=== PATIENT | male | born 1985 | race Caucasian/White ===

== ENCOUNTER 2017-07-06 21:20 | Emergency (ER) | payer BC ==
[~2017-07-06] VITALS: Ht 180.3 cm; Wt 133.3 kg
[2017-07-06 21:23] VITALS: TEMP 36.9; Ht 180.3 cm; Wt 133.3 kg
[2017-07-06] MEDS ORDERED: BENZ100C84 PO (21:58)
[2017-07-06] MEDS ORDERED: ALBU18002 INH (21:58)
[2017-07-06] MEDS ORDERED: MISCCAP80 PO (21:58)
[2017-07-06] MEDS ORDERED: AMOX500C3 PO (21:58)
--- NOTE | 2017-07-06 21:58 | EMERGENCY ROOM VISIT NOTE ---
History First contact with patient: 21:42 Chief Complaint: SHORTNESS OF BREATH Stated Complaint: TROUBLE BREATHING, COUGHING, BLACKING OUT Nursing Triage Summary: see triage note History of Present Illness The patient is a 31 year old male who presents to the Emergency Room with complaints of cough. The patient states that he has had a cough for the last 1.5 weeks. The patient states that he feels a dry spot and a tickle in the back of his throat and develops a coughing fit. He states that he coughs so much that he has a syncopal episode. The patient states that with this paroxysm of cough, he is short of breath and feels as though he can't breathe and feels wheezing. He rates his discomfort a 3/10. He was seen at urgent care and started on amoxicillin 1 week ago. He states he has had a sore throat as well. He denies any fevers or chills. He denies any pain in his chest. He denies any abdominal pain, nausea, vomiting, diarrhea. The patient denies any history of seasonal allergies. The patient is a smoker. He denies any recent travel. He denies any leg pain or leg swelling. He denies any personal or family history of DVT, PE or coagulopathy. Review of Systems A 10 system review of systems was completed with positives and pertinent negatives listed in the HPI. Past Medical/Surgical History patient denies Social History Smoking Status: Current Every Day Smoker Housing Status: lives with family Occupation Status: employed Current/Historical Medications Scheduled Albuterol Sulfate (Proair Respiclick), 2 PUFFS INH Q6H Amoxicillin (Amoxil), 500 MG PO BID Azithromycin (Zithromax), 250 MG PO DAILY Benzonatate (Tessalon Perles), 100 MG PO TID Benzonatate (Tessalon Perles), 200 MG PO TID Prednisone (Prednisone), 0 PO DAILY Probiotic Product (Probiotic), 1 CAP PO DAILY Physical Exam Vital Signs Date Time Temp Pulse Resp B/P (MAP) Pulse Ox O2 Delivery O2 Flow Rate FiO2 07/06/17 23:24 95 16 139/74 96 07/06/17 21:23 36.9 96 20 144/93 96 Room Air Physical Exam VITALS: Vitals are noted on the nurse's note and reviewed by myself. Vital signs stable. The patient is afebrile. His oxygen saturation is 96% on room air. GENERAL: This is a 31 year old male, in no acute distress, nondiaphoretic, well- developed well-nourished. SKIN: The skin was without rashes, erythema, edema, or bruising. There is no tenting of the skin. Capillary reflex less than 2 seconds. HEAD: Normocephalic atraumatic. EARS: External auditory canals clear, tympanic membranes pearly luciano without erythema or effusion bilaterally. EYES: Pupils equal round and reactive to light and accommodation. Conjunctivae without injection, sclerae without icterus. Extraocular movements intact. NOSE: Patent, turbinates without inflammation or discharge. MOUTH: Mucous membranes moist. Tonsils are not enlarged. Pharynx without erythema or exudate. Uvula midline. Airway patent. Tongue does not deviate. NECK: Supple without nuchal rigidity. No JVD. HEART: Regular rate and rhythm without murmurs gallops or rubs. LUNGS: Clear to auscultation bilaterally without wheezes, rales or rhonchi. No retractions or accessory muscle use. MUSCULOSKELETAL: No muscle atrophy, erythema, or edema noted. Full range of motion in all extremities. Normal gait. Strength 5/5 throughout. NEURO: Patient was alert and oriented to person place and time. No focal neurological deficits. Medical Decision & Procedures ER Provider Diagnostic Interpretation: CHEST 2 VIEWS ROUTINE CLINICAL HISTORY: cough dyspnea COMPARISON STUDY: No previous studies for comparison. FINDINGS: The bones soft tissues and hemidiaphragms are normal. The cardiomediastinal silhouette is normal. The lungs are clear. The pulmonary vasculature is normal. IMPRESSION: Negative chest. Laboratory Results 07/06/17 22:05 Red Blood Count 5.51, Mean Corpuscular Volume 84.6, Mean Corpuscular Hemoglobin 30.1, Mean Corpuscular Hemoglobin Concent 35.6, Mean Platelet Volume 10.0, Neutrophils (%) (Auto) 61.6, Lymphocytes (%) (Auto) 29.0, Monocytes (%) (Auto) 4.9, Eosinophils (%) (Auto) 3.6, Basophils (%) (Auto) 0.2, Neutrophils # (Auto) 7.41, Lymphocytes # (Auto) 3.48, Monocytes # (Auto) 0.59, Eosinophils # (Auto) 0.43, Basophils # (Auto) 0.03 07/06/17 22:05 Test 07/06/17 22:05 07/06/17 22:11 White Blood Count 12.02 K/uL (4.8-10.8) Red Blood Count 5.51 M/uL (4.7-6.1) Hemoglobin 16.6 g/dL (14.0-18.0) Hematocrit 46.6 % (42-52) Mean Corpuscular Volume 84.6 fL (80-100) Mean Corpuscular Hemoglobin 30.1 pg (25-34) Mean Corpuscular Hemoglobin Concent 35.6 g/dl (32-36) Platelet Count 239 K/uL (130-400) Mean Platelet Volume 10.0 fL (7.4-10.4) Neutrophils (%) (Auto) 61.6 % Lymphocytes (%) (Auto) 29.0 % Monocytes (%) (Auto) 4.9 % Eosinophils (%) (Auto) 3.6 % Basophils (%) (Auto) 0.2 % Neutrophils # (Auto) 7.41 K/uL (1.4-6.5) Lymphocytes # (Auto) 3.48 K/uL (1.2-3.4) Monocytes # (Auto) 0.59 K/uL (0.11-0.59) Eosinophils # (Auto) 0.43 K/uL (0-0.5) Basophils # (Auto) 0.03 K/uL (0-0.2) RDW Standard Deviation 38.3 fL (36.4-46.3) RDW Coefficient of Variation 12.5 % (11.5-14.5) Immature Granulocyte % (Auto) 0.7 % Immature Granulocyte # (Auto) 0.08 K/uL (0.00-0.02) Anion Gap 7.0 mmol/L (3-11) Est Creatinine Clear Calc Drug Dose 115.7 ml/min Estimated GFR () 84.9 Estimated GFR (Non- 73.2 BUN/Creatinine Ratio 9.0 (10-20) Calcium Level 8.9 mg/dl (8.5-10.1) Total Bilirubin 0.4 mg/dl (0.2-1) Aspartate Amino Transf (AST/SGOT) 37 U/L (15-37) Alanine Aminotransferase (ALT/SGPT) 107 U/L (12-78) Alkaline Phosphatase 88 U/L (45-117) Total Protein 7.8 gm/dl (6.4-8.2) Albumin 3.9 gm/dl (3.4-5.0) Globulin 3.9 gm/dl (2.5-4.0) Albumin/Globulin Ratio 1.0 (0.9-2) Chemistry Specimen Hemolysis Bedside D-Dimer 173 ng/mlFEU (0-450) Bedside Troponin I < 0.030 ng/ml (0-0.045) Medications Administered Medications (Trade) Dose Ordered Sig/Blas Route Start Time Stop Time Status Last Admin Dose Admin Azithromycin (Zithromax Tab) 500 mg NOW STAT PO 07/06/17 23:03 07/06/17 23:05 DC 07/06/17 23:18 500 MG Prednisone (PredniSONE TAB) 60 mg NOW STAT PO 07/06/17 23:03 07/06/17 23:05 DC 07/06/17 23:18 60 MG Benzonatate (Tessalon Perles Cap) 100 mg NOW ONCE PO 07/06/17 23:15 07/06/17 23:16 DC 07/06/17 23:18 100 MG Procedure The patient was monitored on a nuclear monitoring technician. They maintained a normal sinus rhythm without ectopy. ECG Indication: SOB/dyspnea Rate (beats per minute): 90 Rhythm: normal sinus Findings: no acute ischemic change Comparison ECG Date: no prior available ED Course The patient was seen and examined. He does not have a fever or leukocytosis. He does not have any significant electrolyte abnormality. Pertussis is pending. Troponin is not elevated. D-dimer was not elevated. The patient likely has allergic rhinitis, postnasal drip causing the paroxysms of cough. Pertussis is also considered. The patient will be placed on Z-Carlos, prednisone and encouraged to try [id number] Flonase and antihistamine such as Claritin, Zyrtec or Astrid. He will also be given Tessalon Perles. He should recheck with his family doctor next week. He should return sooner with any worsening symptoms. The case was discussed with Dr. Espinosa who agrees with the assessment and treatment plan Medical Decision DIFFERENTIAL DIAGNOSIS: Aortic dissection, myocarditis, pericarditis, cervical disc disease, costochondritis, herpes zoster, rib fracture, pleuritis, pneumonia , pulmonary embolus, tension pneumothorax, anxiety disorder, somatoform disorder , choledocholithiasis, status, esophagitis, esophageal spasm, esophageal reflux , esophageal rupture, pancreatitis, peptic ulcer disease, cardiac ischemia, ST elevation ND, acute coronary syndrome, arrhythmia, coronary artery vasospasm. vavular heart disease, coronary artery disease, among others. Medication Reconcilliation Current Medication List: was personally reviewed by me Blood Pressure Screening Patient's blood pressure: Elevated blood pressure Blood pressure disposition: Elevated BP felt to be situational Impression Primary Impression: Cough Additional Impression: Acute bronchitis Departure Information Dispostion Home / Self-Care Condition GOOD Prescriptions Azithromycin (Zithromax) 250 Mg Tab 250 MG PO DAILY for 4 Days, #4 TAB Prov: Lynn Cummins PA-C 07/06/17 Benzonatate (Tessalon Perles) 200 Mg Cap 200 MG PO TID for 10 Days, #30 CAP Prov: Lynn Cummins PA-C 07/06/17 Prednisone (Prednisone) 20 Mg Tab 0 PO DAILY, #18 TAB 3 DAILY FOR 3 DAYS, THEN 2 DAILY FOR 3 DAYS, THEN 1 DAILY FOR 3 DAYS. Prov: Lynn Cummins PA-C 07/06/17 Referrals No Doctor, Assigned (PCP) Patient Instructions My [facility] Additional Instructions Tessalon Perles as prescribed, as needed for coughing Zithromax as prescribed, until finished Prednisone as prescribed, until finished You may consider trying [id number] medications such as Claritin, Zyrtec or Astrid and nasal spray such as Flonase Return with any worsening symptoms Otherwise, follow up with your family doctor next week Problem Qualifiers
[2017-07-06 22:22] LABS: BASO % 0.2 %; BASO ABS # 0.03 K/uL (0-0.2); COMPLETE YES; EOS % 3.6 %; HEMATOCRIT 46.6 % (42-52); IG% 0.7 %; LYMPH ABS # 3.48 K/uL (1.2-3.4); MEAN CELL VOLUME 84.6 fL (80-100); MEAN CORPUSCULAR HEMOGLOBIN 30.1 pg (25-34); MEAN CORPUSCULAR HGB CONC 35.6 g/dl (32-36); MONO % 4.9 %; NEUT % 61.6 %; PLATELET COUNT 239 K/uL (130-400); RED BLOOD COUNT 5.51 M/uL (4.7-6.1); WHITE BLOOD COUNT 12.02 K/uL (4.8-10.8)
[2017-07-06 22:31] LABS: POINT OF CARE TROPONIN I < 0.030 ng/ml (0-0.045)
--- NOTE | 2017-07-06 22:39 | DIAGNOSTIC IMAGING REPORT ---
CHEST 2 VIEWS ROUTINE CLINICAL HISTORY: cough dyspnea COMPARISON STUDY: No previous studies for comparison. FINDINGS: The bones soft tissues and hemidiaphragms are normal. The cardiomediastinal silhouette is normal. The lungs are clear. The pulmonary vasculature is normal. IMPRESSION: Negative chest. The above report was generated using voice recognition software. It may contain grammatical, syntax or spelling errors. Electronically signed by: Samir Palacios M.D. 07/06/2017 10:37 PM Dictated Date/Time: 07/06/2017 10:37 PM
[2017-07-06 22:51] LABS: CALCIUM 8.9 mg/dl (8.5-10.1); CREATININE 1.3 mg/dl (0.60-1.40)
[2017-07-06] MEDS ORDERED: BENZ1CAP90 PO (23:02)
[2017-07-06] MEDS ORDERED: AZIT250T PO (23:02)
[2017-07-06] MEDS ORDERED: PRED20TA PO (23:02)
[2017-07-06] MEDS ORDERED: AZITHROMYCIN 250 MG TAB PO STA (23:03)
[2017-07-06] MEDS ORDERED: BENZONATATE 100MG CAP PO ONE (23:15)
[2017-07-06 23:24] VITALS: BP 139/74; PULSE 95; O2SAT 96
[2017-07-10 19:42] LABS: BORDETELLA PERTUSSIS SOURCE Nasal Swab
== END 2017-07-06 23:25 | disposition home or self-care (01) ==
LOC: C.EDB 21:22
DX: J20.9 Acute bronchitis, unspecified (principal); F17.200 Nicotine dependence, unspecified, uncomplicated; Z79.899 Other long term (current) drug therapy